=== PATIENT | female | born 1980 | race Caucasian/White ===

== ENCOUNTER 2018-06-16 09:23 | Day surgery (SDC) | payer OTHER, SELFPAY ==
--- NOTE | 2018-06-16 | PATH_ITS ---
[facility] Accession Number: [id number] . 01 Material submitted: . PART A: GASTRIC BIOPSY PART B: GASTRIC POLYP BIOPSY . 01 Clinical history: . A: R/O H. PYLORI . 02 Diagnosis: A. Stomach, Biopsy: Antral mucosa with focal reactive epithelial changes. Negative for active inflammation. Negative for Helicobacter by immunohistochemistry. Negative for intestinal metaplasia. Negative for dysplasia and malignancy. . B. Stomach, Polyp, Biopsy: Fundic gland polyp. Negative for dysplasia and malignancy. [facility]/06/18/2018 . 02 Electronically signed: . Phylicia Weiss MD, Pathologist NPI- [id number] . 01 Gross description: . Received two formalin-filled containers, both labeled with the patient's name: . A. In a container labeled gastric, the specimen consists of three less than 0.1 cm to 0.3 cm portions of tissue, entirely submitted in cassette A. B. In a container labeled gastric polyp, the specimen consists of a 0.2 cm portion of tissue, entirely submitted in cassette B. ([id number]) /R . 02 Microscopic: . A. An immunohistochemical stain was performed in order to evaluate for Helicobacter organisms and is negative. The control stain showed appropriate reactivity. . * This test was developed and its performance characteristics determined by [email or web address]. It has not been cleared or approved by the U.S. Food and Drug Administration. The FDA has determined that such clearance or approval is not necessary. This test is used for clinical purposes. It should not be regarded as investigational or for research. . 02 Pathologist provided ICD-10: R10.9 . 02 CPT . 037741, 400411, C27899 Performed at: [address] [place] [address], [place], [place] [id number] MD Wilian Miranda MD Phone: [phone] Performed at: 02 [facility] [address] [place] [id number] MD Phylicia Weiss MD Phone: [phone]
[2018-06-16 09:44] VITALS: BP 107/70; PULSE 78; RESP 16; TEMP 37.1; O2SAT 100; BMI 23.3
[2018-06-16] MEDS: SODIUM CHLORIDE 0.9% 1,000 ML 100 ML IV (10:16)
--- NOTE | 2018-06-16 10:54 | PM.HP.1 ---
History of Present Illness Date Patient Seen: 06/16/18 Time Patient Seen: 10:50 Chief complaint: [id number] EGD W/POSS BX Narrative: heartburn, abdominal pain Patient History Family & Social History Social History: household members spouse Meds Home Medications Medication Instructions Recorded Confirmed Type norethin-e.estradiol triphasic 1 tab PO DAILY 06/16/18 06/16/18 History [Cyclafem (28)] pantoprazole 40 mg PO DAILY 06/16/18 06/16/18 History Allergies Allergy/AdvReac Type Severity Reaction Status Date / Time No Known Drug Allergies Allergy Verified 06/16/18 09:53 Review of Systems Review of Systems All systems reviewed & are unremarkable except as noted in HPI and below Exam Vital Signs (past 8 hours): - 06/16/18 09:44 Temperature 98.8 F Pulse Rate 78 Respiratory Rate 16 Blood Pressure 107/70 Pulse Oximetry 100 Oxygen Delivery Method Room Air Narrative Exam Narrative: gen aaox3 heent anicteric cv rrr, no murmur pulm ctab ext 2+ pulses, no edema Assessment & Plan Plan: Assessment/Plan Narrative: gerd, abdominal pain EGD
[2018-06-16] MEDS: MIDAZOLAM 5 MG/5 ML VIAL IV (11:20)
[2018-06-16] MEDS: fentaNYL 250 MCG/5 ML INJ IV (11:21)
--- NOTE | 2018-06-16 11:22 | P.HP_ITS ---
History of Present Illness Date Patient Seen: 06/16/18 Time Patient Seen: 10:50 Chief complaint: [id number] EGD W/POSS BX Narrative: heartburn, abdominal pain Patient History Family & Social History Social History: household members spouse Meds Home Medications Medication Instructions Recorded Confirmed Type norethin-e.estradiol triphasic 1 tab PO DAILY 06/16/18 06/16/18 History [Cyclafem (28)] pantoprazole 40 mg PO DAILY 06/16/18 06/16/18 History Allergies Allergy/AdvReac Type Severity Reaction Status Date / Time No Known Drug Allergies Allergy Verified 06/16/18 09:53 Review of Systems Review of Systems All systems reviewed & are unremarkable except as noted in HPI and below Exam Vital Signs (past 8 hours): - 06/16/18 09:44 Temperature 98.8 F Pulse Rate 78 Respiratory Rate 16 Blood Pressure 107/70 Pulse Oximetry 100 Oxygen Delivery Method Room Air Narrative Exam Narrative: gen aaox3 heent anicteric cv rrr, no murmur pulm ctab ext 2+ pulses, no edema Assessment & Plan Plan: Assessment/Plan Narrative: gerd, abdominal pain EGD
--- NOTE | 2018-06-16 11:22 | PM.OP.ENDO ---
Operative Date/Time/Diagnoses Date of procedure: 06/16/18 Time of procedure: 10:27 Procedure & Clinicians Study performed: EGD with biopsy Same procedure as scheduled: Yes Indications: GERD, abdominal pain Surgeon: Willie Thomas Procedure Notes Procedure in detail: Sedation: 5 mg midazolam, 100 mcg fentanyl. Prior to the procedure, a history and physical was performed, and patient medications and allergies were reviewed. Preprocedure nursing history assessment was reviewed. Patient identification and proposed procedure were verified by the physician and nurse in the procedure room. The physical status of the patient was reassessed after the procedure. After informed consent was obtained including risks, benefits, and alternatives, the scope was passed under direct vision. Throughout the procedure, the patient's blood pressure, pulse, and oxygen saturation were monitored continuously. The upper endoscope was introduced through the mouth and advanced to the 2nd portion of the duodenum. Retroflexion was performed in the stomach. The patient tolerated the procedure well. Esophagus: Normal appearing esophagus. Z-line was regular and located at 40 cm from the incisors Stomach: Multiple 2-5 mm sessile polyps were noted in the fundus and proximal body. Biopsies were taken Mild, patchy erythema was noted in the antrum of the stomach. Biopsies were taken to exclude H pylori Duodenum: The examined portion of the duodenum was normal appearing Sedation minutes: 10 Complications: other Plan for aftercare: Follow-up pathology results Continue present medications Resume previous diet Follow up in GI clinic as previously scheduled Discharge home with escort
[2018-06-16 11:28] VITALS: BP 99/66; PULSE 74; RESP 15; TEMP 36.3; O2SAT 99
--- NOTE | 2018-06-16 11:29 | SUR.PHASEII ---
PT ARRIVED TO PHASE II VIA STRETCHER FROM THE ENDO ROOM. PT LAYING IN BED WITH EYES CLOSED, EASILY AROUSABLE TO VOICE WHEN SPOKEN TO. VSS. PT BROUGHT TO BEDSIDE.
[2018-06-16 11:51] VITALS: BP 102/66; PULSE 86; RESP 16; TEMP 36.3; O2SAT 98
== END 2018-06-16 11:56 ==
PROVIDERS: PCP General Practice; Visit Provider Internal Medicine
PROC: 0DJ08ZZ Inspection of Upper Intestinal Tract, Via Natural or Artificial Opening Endoscopic (ICD-10-PCS; CPT 43235; principal; 2018-06-16 11:00)
DX: R10.13 Epigastric pain (principal)
CPT/HCPCS: 43239; 88305; 88342; J2250; J3010

== ENCOUNTER 2018-07-21 11:50 | Day surgery (SDC) | payer OTHER, SELFPAY ==
[2018-07-21] VITALS (7 sets, daily range): BP systolic 96–107; BP diastolic 60–69; PULSE 68–81; RESP 14–18; TEMP 36.4–36.7; O2SAT 97–100
[2018-07-21] MEDS: SODIUM CHLORIDE 0.9% 1,000 ML 200 ML IV (13:11)
--- NOTE | 2018-07-21 13:22 | PM.PREOP ---
Pre-operative Note Interval Note History & Physical reviewed/Exam performed by Physician: Yes Changes to H&P: No ASA Class (for procedural sedation): I
[2018-07-21] MEDS: MIDAZOLAM 5 MG/5 ML VIAL IV (14:14)
[2018-07-21] MEDS: fentaNYL 250 MCG/5 ML INJ IV (14:15)
--- NOTE | 2018-07-21 14:30 | PM.OP.ENDO ---
Operative Date/Time/Diagnoses Date of procedure: 07/21/18 Procedure & Clinicians Study performed: Colonoscopy Sedation: 5 mg midazolam. 100 mcg fentanyl. Moderate conscious sedation was administered by the endoscopy nurse and supervised by the endoscopist. The following parameters were monitored: Oxygen saturation, heart rate, blood pressure, and response to care. Indications: Family history of colon polyps diagnosed in 1st degree relatives <50 years old. This is the patient's 1st colonoscopy Procedure Notes Procedure in detail: Prior to the procedure, history and physical was performed, and patient medications and allergies were reviewed. Preprocedure nursing history and assessment was reviewed. Patient identification and proposed procedure were verified by the physician and nurse in the procedure room. The physical status of the patient was reassessed after the procedure. After informed consent was obtained including risks, benefits, and alternatives, the scope was passed under direct vision. Throughout the procedure, the patient's blood pressure, pulse, and oxygen saturations were monitored continuously. The colonoscope was introduced through the anus and advanced to the cecum as identified by the appendiceal orifice and ileocecal valve. The patient tolerated the procedure well. Bowel prep was deemed adequate to detect polyps greater than 5 mm. Perianal examination was notable for non thrombosed external hemorrhoids at the anterior portion ( 3 oclock). CINDY was unremarkable. Retroflexion in the rectum revealed grade 2 internal hemorrhoids. The entire colon was mildly tortuous. The examination was otherwise unremarkable. Impression: Internal and external hemorrhoids Tortuous colon No specimen collected Sedation minutes: 20 Complications: other (No complications. Estimated blood loss 0.) Plan for aftercare: Repeat colonoscopy in 10 years screening purposes Follow-up in GI clinic as previously scheduled Resume previous diet Resume home medications Discharged home with escort
== END 2018-07-21 15:20 | disposition home or self-care (01) ==
PROVIDERS: PCP General Practice; Visit Provider Internal Medicine
PROC: 0DJD8ZZ Inspection of Lower Intestinal Tract, Via Natural or Artificial Opening Endoscopic (ICD-10-PCS; CPT 45378; principal; 2018-07-21 13:00)
DX: R10.9 Unspecified abdominal pain (principal); K59.00 Constipation, unspecified; K64.1 Second degree hemorrhoids; K64.4 Residual hemorrhoidal skin tags
CPT/HCPCS: 45378; J2250; J3010